=== PATIENT | male | born 1960 | race Caucasian/White ===

== ENCOUNTER 2017-05-13 08:11 | Inpatient (IN) | payer BC ==
[~2017-05-13] VITALS: Ht 91.4 cm; Wt 107.8 kg
[~2017-05-13 08:11] MED LIST: BUPIVACAINE/PF 0.25% ONE; EPINEPHRINE 1 MG/ML, 1ML ONE; GLYB5TAB3 PO; INSU100V13 SC; LIDOCAINE/PF 1%, 30ML ONE; LISI5TAB7 PO; METF500T4 PO; THROMBIN 5,000 UNIT VIAL TP ONE; VANCOMYCIN 1,000 MG ONE; spironolactone PO
[2017-05-13 08:39] VITALS: BP 137/100
[2017-05-13] MEDS ORDERED: LACTATED RINGERS 1,000 ML IV SCH (08:39)
[2017-05-13] MEDS ORDERED: SPIR25TA3 PO (08:39)
[2017-05-13] MEDS ORDERED: MIDAZOLAM 1 MG/ML, 2ML ONE (09:11)
[2017-05-13] MEDS ORDERED: PROPOFOL 10 MG/ML, 20ML ONE (09:12)
[2017-05-13] MEDS ORDERED: FENTANYL PF 100 MCG/2ML ONE ×4 (09:12→14:45)
[2017-05-13] MEDS ORDERED: CEFAZOLIN 1,000 MG ONE ×2 (09:14)
[2017-05-13] MEDS ORDERED: GLYCOPYRROLATE 0.4 MG/2 ML, 2ML ONE (09:15)
[2017-05-13] MEDS ORDERED: NEOSTIGMINE 1 MG/ML, 10ML ONE (09:15)
[2017-05-13] MEDS ORDERED: ROCURONIUM 10 MG/ML ONE (09:16)
[2017-05-13] MEDS ORDERED: LIDOCAINE/PF 0.5% ,50ML ONE (10:20)
[2017-05-13] MEDS ORDERED: PROMETHAZINE 25 MG/ML, 1ML IV PRN (11:00)
[2017-05-13] MEDS ORDERED: HYDROmorphone 1 MG/ML, 1ML IV PRN (11:00)
[2017-05-13] MEDS ORDERED: OXYcodone 5 MG/5 ML ORAL.SOL UDC PO PRN (11:00)
[2017-05-13] MEDS ORDERED: ONDANSETRON 2MG/ML, 2ML IVPush PRN (11:00)
[2017-05-13] MEDS ORDERED: MEPERIDINE/PF 25MG/0.5ML IVPush PRN (11:00)
[2017-05-13] MEDS ORDERED: LABETALOL 5MG/ML, 20ML IV PRN (11:00)
[2017-05-13] MEDS ORDERED: ACETAMINOPHEN 325 MG TABLET PO PRN (11:00)
[2017-05-13] MEDS ORDERED: hydrALAzine 20 MG/ML, 1ML IV PRN (11:00)
[2017-05-13] MEDS ORDERED: LIDOCAINE 0.5%-EPI 1:200K, 50ML IM ONE (11:43)
[2017-05-13] MEDS ORDERED: BUPIVACAINE/PF-EPI 0.25% 1:200K IM ONE (11:43)
[2017-05-13] MEDS ORDERED: VANCOMYCIN 1,000 MG IM ONE (12:54)
[2017-05-13] MEDS ORDERED: VANCOMYCIN 1,000 MG ONE (13:48)
[2017-05-13] MEDS ORDERED: ONDANSETRON 2MG/ML, 2ML ONE (14:45)
[2017-05-13] MEDS: FENTANYL PF 100 MCG/2ML IV PRN ×2 (14:50→15:20)
[2017-05-13] MEDS ORDERED: PROMETHAZINE 25 MG/ML, 1ML ONE (15:16)
[2017-05-13] MEDS ORDERED: hydrALAzine 20 MG/ML, 1ML ONE (15:51)
[2017-05-13] MEDS ORDERED: DIPHENHYDRAMINE 50 MG/ML, 1ML ONE (16:21)
[2017-05-13] MEDS ORDERED: SCOPOLAMINE PATCH, 1.5MG PATCH.TD72 TD ONE ×2 (16:21→16:30)
[2017-05-13] MEDS ORDERED: DIPHENHYDRAMINE 50 MG/ML, 1ML IVPush PRN (16:30)
[2017-05-13] MEDS ORDERED: ONDANSETRON 2MG/ML, 2ML IV PRN (17:30)
[2017-05-13] MEDS ORDERED: morphine SULFATE 10 MG/ML, 1ML IV PRN (17:30)
[2017-05-13] MEDS ORDERED: HYDROcodone/APAP 5/325 TABLET PO PRN (17:30)
[2017-05-13] MEDS ORDERED: DIAZEPAM 5 MG/ML, 2ML IV PRN (17:30)
[2017-05-13] MEDS ORDERED: MAGNESIUM HYDROXIDE 8%, 30ML UDC PO PRN (17:30)
[2017-05-13] MEDS ORDERED: BISACODYL 10 MG SUPP PR PRN (17:30)
[2017-05-13] MEDS ORDERED: HYDROcodone/APAP 10/325 MG TABLET PO PRN (17:30)
[2017-05-13] MEDS ORDERED: DIAZEPAM 5 MG TABLET PO PRN (17:30)
[2017-05-13] MEDS ORDERED: INSULIN DETEMIR 100 UNITS/ML, PEN SQ-INSULIN PRN (18:00)
[2017-05-13] MEDS: NS + 20MEQ KCL 1,000 ML IV SCH (18:25)
[2017-05-13] MEDS: CEFAZOLIN PMX 1GM/50ML 50 ML IVPB SCH (19:33)
[2017-05-13 20:30] VITALS: BP 116/74
[2017-05-13 23:39] VITALS: BP 114/76
[2017-05-14] MEDS: CEFAZOLIN PMX 1GM/50ML 50 ML IVPB SCH ×3 (03:30→19:13)
[2017-05-14 03:38] VITALS: BP 113/76
[2017-05-14] MEDS: NS + 20MEQ KCL 1,000 ML IV SCH ×3 (05:13→20:29)
[2017-05-14 05:14] LABS: HEMATOCRIT 41.8 % (39.2-51.8); HEMOGLOBIN 13.8 g/dL (13.7-18.0); WHITE BLOOD COUNT 8.3 x10^3/uL (3.4-10)
[2017-05-14 05:27] LABS: BLOOD UREA NITROGEN 12 mg/dL (7-18)
[2017-05-14 08:04] VITALS: BP 111/73
[2017-05-14] MEDS: ATORVASTATIN 10 MG TABLET PO SCH (08:18)
[2017-05-14] MEDS: SENNA/DOCUSATE TABLET PO SCH (08:18)
[2017-05-14] MEDS: SPIRONOLACTONE 25 MG TABLET PO SCH (08:18)
[2017-05-14] MEDS: CETIRIZINE 10 MG TABLET PO SCH (08:18)
[2017-05-14] MEDS: LISINOPRIL 5 MG TABLET PO SCH (08:18)
[2017-05-14] MEDS: INSULIN ASPART 100 UNITS/ML, PEN SQ-INSULIN PRN ×3 (08:19→17:16)
[2017-05-14] MEDS ORDERED: MAGNESIUM HYDROXIDE 8%, 30ML UDC PO SCH (09:00)
[2017-05-14 12:00] VITALS: BP 114/80
[2017-05-14] MEDS: OXYcodone IR 5MG TABLET PO PRN ×2 (12:41→16:20)
[2017-05-14 14:05] VITALS: BP 114/73
[2017-05-14 16:58] VITALS: BP 132/80
[2017-05-14] MEDS: ONDANSETRON 2MG/ML, 2ML IV PRN (17:17)
[2017-05-14] MEDS ORDERED: HYDROcodone/APAP 10/325 MG TABLET PO PRN (18:00)
[2017-05-14] MEDS ORDERED: morphine SULFATE 10 MG/ML, 1ML IV PRN (18:30)
[2017-05-14 20:19] VITALS: BP 121/77
[2017-05-15] VITALS (7 sets, daily range): BP systolic 123–167; BP diastolic 84–99
[2017-05-15] MEDS: ONDANSETRON 2MG/ML, 2ML IV PRN ×3 (00:27→23:08)
[2017-05-15] MEDS: PROMETHAZINE 25 MG/ML, 1ML IM PRN (02:13)
[2017-05-15] MEDS: CEFAZOLIN PMX 1GM/50ML 50 ML IVPB SCH ×3 (03:53→18:44)
[2017-05-15 06:17] LABS: HEMATOCRIT 40.3 % (39.2-51.8); HEMOGLOBIN 13.4 g/dL (13.7-18.0); WHITE BLOOD COUNT 8.6 x10^3/uL (3.4-10)
[2017-05-15 06:26] LABS: BLOOD UREA NITROGEN 10 mg/dL (7-18)
[2017-05-15] MEDS: INSULIN ASPART 100 UNITS/ML, PEN SQ-INSULIN PRN ×3 (08:26→17:20)
[2017-05-15] MEDS ORDERED: HYDROcodone/APAP 10/325 MG TABLET PO PRN (09:30)
[2017-05-15] MEDS ORDERED: morphine SULFATE 10 MG/ML, 1ML IVPush PRN (09:30)
[2017-05-15] MEDS: CETIRIZINE 10 MG TABLET PO SCH (09:41)
[2017-05-15] MEDS: SENNA/DOCUSATE TABLET PO SCH (09:41)
[2017-05-15] MEDS: ATORVASTATIN 10 MG TABLET PO SCH (09:41)
[2017-05-15] MEDS: LISINOPRIL 5 MG TABLET PO SCH (09:42)
[2017-05-15] MEDS: SPIRONOLACTONE 25 MG TABLET PO SCH (09:42)
[2017-05-15] MEDS ORDERED: MAGNESIUM CITRATE 300ML ORAL SOL PO PRN (10:00)
[2017-05-15] MEDS: METOCLOPRAMIDE 10MG TABLET PO SCH ×3 (11:00→21:27)
[2017-05-15] MEDS: NS + 20MEQ KCL 1,000 ML IV SCH ×2 (11:30→21:26)
[2017-05-15] MEDS ORDERED: METHYLNALTREXONE 12 MG/0.6 ML SQ ONE (12:30)
[2017-05-15] MEDS ORDERED: LISINOPRIL 5 MG TABLET PO SCH (15:35)
[2017-05-15] MEDS ORDERED: SPIRONOLACTONE 25 MG TABLET PO SCH (15:35)
[2017-05-16] MEDS ORDERED: HYDR-3245 PO (00:04)
[2017-05-16] MEDS ORDERED: CEPH-368 PO (00:05)
[2017-05-16] MEDS ORDERED: ATOR10TA9 PO (00:08)
[2017-05-16] MEDS ORDERED: LINA5TAB PO (00:12)
[2017-05-16] MEDS ORDERED: CETI10TA24 PO (00:13)
[2017-05-16] MEDS ORDERED: ASPI-496 PO (00:14)
[2017-05-16] MEDS ORDERED: IBUP-1484 PO (00:15)
[2017-05-16] MEDS: PROMETHAZINE 25 MG/ML, 1ML IM PRN (00:43)
[2017-05-16 01:28] VITALS: BP 161/103
[2017-05-16] MEDS ORDERED: ACETAMINOPHEN 325 MG TABLET PO PRN (01:30)
[2017-05-16 01:44] VITALS: BP 149/99
[2017-05-16] MEDS: CEFAZOLIN PMX 1GM/50ML 50 ML IVPB SCH ×2 (03:32→11:00)
[2017-05-16] MEDS: METOCLOPRAMIDE 10MG TABLET PO SCH ×2 (03:38→10:00)
[2017-05-16 04:57] LABS: HEMATOCRIT 40.5 % (39.2-51.8); HEMOGLOBIN 13.7 g/dL (13.7-18.0); WHITE BLOOD COUNT 9.8 x10^3/uL (3.4-10)
[2017-05-16 05:01] LABS: BLOOD UREA NITROGEN 11 mg/dL (7-18)
[2017-05-16 07:20] VITALS: BP 126/88
[2017-05-16] MEDS: NS + 20MEQ KCL 1,000 ML IV SCH (07:30)
[2017-05-16] MEDS: CETIRIZINE 10 MG TABLET PO SCH (07:58)
[2017-05-16] MEDS: ATORVASTATIN 10 MG TABLET PO SCH (08:00)
[2017-05-16] MEDS: SENNA/DOCUSATE TABLET PO SCH (08:00)
[2017-05-16] MEDS: INSULIN ASPART 100 UNITS/ML, PEN SQ-INSULIN PRN (08:02)
[2017-05-16 10:30] VITALS: BP 118/74
[2017-05-16] MEDS ORDERED: HYDR-3240 PO (10:41)
[2017-05-16] MEDS ORDERED: ONDA4TAB10 PO (10:44)
[2017-05-16] MEDS ORDERED: ACET-1600 PO (10:46)
== END 2017-05-16 11:45 | disposition home or self-care (01) | DRG 460 ==
LOC: ORIP 08:11 → 4NOR 17:08 → DCLOUNGE 05-16 11:26
PROVIDERS: ADMIT Orthopaedic Surgery Orthopaedic Surgery of the Spine; ATTEND Orthopaedic Surgery Orthopaedic Surgery of the Spine
PROC: 01NB0ZZ Release Lumbar Nerve, Open Approach (ICD-10-PCS; 2017-05-13)
PROC: 0SB20ZZ Excision of Lumbar Vertebral Disc, Open Approach (ICD-10-PCS; 2017-05-13)
PROC: 0SG00AJ Fusion of Lumbar Vertebral Joint with Interbody Fusion Device, Posterior Approach, Anterior Column, Open Approach (ICD-10-PCS; principal; 2017-05-13 11:00)
DX: M51.26 Other intervertebral disc displacement, lumbar region (principal); I11.0 Hypertensive heart disease with heart failure; I50.32 Chronic diastolic (congestive) heart failure; E87.1 Hypo-osmolality and hyponatremia; E11.9 Type 2 diabetes mellitus without complications; G47.33 Obstructive sleep apnea (adult) (pediatric); E78.2 Mixed hyperlipidemia; M19.90 Unspecified osteoarthritis, unspecified site; Z96.642 Presence of left artificial hip joint; Z79.4 Long term (current) use of insulin; Z82.0 Family history of epilepsy and other diseases of the nervous system; Z82.49 Family history of ischemic heart disease and other diseases of the circulatory system; Z82.5 Family history of asthma and other chronic lower respiratory diseases
CPT/HCPCS: 36415; 72100; 80048; 82962; 85025; C1713; C1776; J0171; J0690; J1815; J2001; J2250; J2270; J2405; J2550; J2704; J2710; J3010; J3370; J3480; J3490; C1762; J0360; J1200; J7120